=== PATIENT | female | born 1995 | race African-American/Black ===

== ENCOUNTER 2019-04-28 11:20 | Inpatient (IN) | payer MEDICAID ==
[~2019-04-28] VITALS: Ht 170.2 cm; Wt 90.7 kg
[2019-04-28] MEDS: LACTATED RINGER'S 1,000 ML IV SCH ×2 (12:30→13:10)
[2019-04-28] MEDS ORDERED: LACT. RINGERS/OXYTOCIN 20UNITS 1,000 ML IV SCH (12:42)
[2019-04-28] MEDS ORDERED: LIDOCAINE 1% (LOCAL ANESTH.) PF 5ml SDV IJ ONE (12:45)
[2019-04-28] MEDS ORDERED: NALBUPHINE HCL 10 MG/1ml INJECTION IV PRN (12:45)
[2019-04-28] MEDS ORDERED: LIDOCAINE 2%HCL (LOCAL ANESTH.) INJ 20ML MDV ID ONE (12:45)
[2019-04-28] MEDS ORDERED: WITCH HAZEL-GLYCERIN PAD TOP PRN (12:45)
[2019-04-28] MEDS ORDERED: PHISODERM TOP SOLN 240ML BTL TOP PRN (12:45)
[2019-04-28] MEDS ORDERED: DERMOPLAST 60ML BOTTLE TOP PRN (12:45)
[2019-04-28] MEDS ORDERED: PENICILLIN G POT 5MIL/D5 50ML 50 ML IV ONE (12:45)
[2019-04-28] MEDS: PENICILLIN G POTASSIUM 2,500,000 UNITS in D5W 5% 50 ML IV SCH ×2 (13:14→17:11)
[2019-04-28 13:21] LABS: Urine WBC None Seen /hpf (0 - 5)
[2019-04-28 13:28] LABS: Basophils # (auto) 0 uL; Basophils % (auto) 0.2 % (0.0-2.0); Eosinophils # (auto) 0 uL; Eosinophils % (auto) 0.4 % (0.0-7.0); Hematocrit 36.3 % (36.0-46.0); Hemoglobin 11.9 g/dL (12.2-16.2); Lymphocytes # (auto) 1.7 uL; Lymphocytes % (auto) 14.4 % (10.0-50.0); Mean Corpuscular Hgb Conc. 32.9 g/dL (32.0-36.0); Mean Corpuscular Volume 91.2 fL (80.0-100.0); Monocytes # (auto) 0.5 uL; Monocytes % (auto) 4.7 % (0.0-12.0); Neutrophils # (auto) 9.5 uL; Neutrophils % (auto) 80.3 % (37.0-80.0); Nucleated Red Blood Cells % 0.1 %; Platelet Count (auto) 309 10^3/uL (140-450); Red Blood Cells 3.98 10^6/uL (4.0-5.20); Red Cell Distribution Width 14.2 % (11.8-14.3); White Blood Cell 11.8 10^3/uL (4.4-10.8)
[2019-04-28 13:35] LABS: Urine Bacteria FEW /hpf (None Seen); Urine Blood Negative /uL (Negative); Urine Specific Gravity 1.012 (1.001-1.035)
[2019-04-28 13:44] LABS: INR < 0.93 (0.9-1.15); Partial Thromboplastin Time 26.2 sec (23.64-32.05)
[2019-04-28 13:54] LABS: Albumin 2.8 g/dL (3.4-5.0); Calcium 8.8 mg/dL (8.5-10.1); Potassium 3.8 mmol/L (3.5-5.1); Uric Acid 5.5 mg/dL (2.6-6.0)
[2019-04-28 13:54] LABS: Alcohol, Urine < 3.0 mg/dL (0-5); Amphetamine Screen, Urine NEGATIVE (NEGATIVE); Barbiturate Scree,Urine NEGATIVE (NEGATIVE); Benzodiazephine Screen, Urine NEGATIVE (NEGATIVE); Cannabinoid Screen, Urine NEGATIVE (NEGATIVE); Cocaine Screen, Urine NEGATIVE (NEGATIVE); Opiate Scree,Urine NEGATIVE (NEGATIVE); Phencyclidine Screen, Urine NEGATIVE (NEGATIVE)
[2019-04-28 13:57] LABS: BUN/Creatinine Ratio 9.8; Bilirubin, Total 0.4 mg/dL (0.2-1.0); Total Protein 7.6 g/dL (6.4-8.2)
[2019-04-28] MEDS ORDERED: PREN-129 OR (17:53)
[2019-04-28] MEDS ORDERED: IBUPROFEN 600 MG TAB PO PRN (19:00)
--- NOTE | 2019-04-28 19:00 | NUR ---
Teaching: Reviewed information in [employer] booklet with patient. Discussed benefits of and risks associated with not . Discussed different positions, proper latch, feeding cues, and baby-led . Provided information of medication side effects related to . All questions and concerns addressed at this time. Patient verbalized understanding of information.
--- NOTE | 2019-04-28 21:06 | NUR ---
Ambulation: Patient OOB with standby assistance by RN. Patient ambulated to bathroom with steady gait. Patient unable to void at this time. [facility] teaching provided with returned demonstration by patient. Clean gown provided and bed linen changed. Patient ambulated back to bed with steady gait and no distress noted.
--- NOTE | 2019-04-28 21:50 | NUR ---
Report given to Talia Tony RN
[2019-04-28 23:30] VITALS: BP 104/72
[2019-04-29 03:30] VITALS: BP 124/57
[2019-04-29 06:33] VITALS: BP 126/72
--- NOTE | 2019-04-29 06:35 | NUR ---
PT NOTIFIED THAT SHE IS RUBELLA NON-IMMUNE. PT GIVEN MMR VACCINATION EDUCATION FORM TO READ. PT DECLINES MMR VACCINE. WILL CONTINUE TO MONITOR.
[2019-04-29 11:00] VITALS: BP 125/64
[2019-04-29 12:17] LABS: RPR Non Reactive (Non Reactive)
[2019-04-29 15:00] VITALS: BP 128/70
--- NOTE | 2019-04-29 15:08 | NUR ---
IV removal IV DC'd with clean sterile technique, catheter fully intact. Pressure dressing applied to site. Patient tolerated well.
[2019-04-29] MEDS ORDERED: TETANUS-DIPTH-ACEL PERTUSSIS 0.5ML SYRG IM ONE (16:30)
[2019-04-29 19:00] VITALS: BP 137/68
--- NOTE | 2019-04-29 20:30 | NUR ---
Post discharge instructions given, pt verbalizes understanding. and required signature obtained.
--- NOTE | 2019-04-29 21:12 | NUR ---
ID bands checked and verfied and removed per protocol and required signature obtained. 2114 Pt discharged home with significant other in stable condition. Pt able to ambulate to private vehicle without difficulty
== END 2019-04-29 21:15 | disposition home or self-care (01) | DRG 560 ==
LOC: LDRP 11:20 → OBSVTOIN 13:15 → LDRP 18:18
PROVIDERS: ADMIT Specialist; ATTEND Specialist
PROC: 10E0XZZ Delivery of Products of Conception, External Approach (ICD-10-PCS; principal; 2019-04-28)
PROC: 0HQ9XZZ Repair Perineum Skin, External Approach (ICD-10-PCS; 2019-04-28)
PROC: 3E0234Z Introduction of Serum, Toxoid and Vaccine into Muscle, Percutaneous Approach (ICD-10-PCS; 2019-04-29)
DX: O69.81X0 Labor and delivery complicated by cord around neck, without compression, not applicable or unspecified (principal); O70.0 First degree perineal laceration during delivery; O99.824 Streptococcus B carrier state complicating childbirth; Z37.0 Single live birth; Z3A.38 38 weeks gestation of pregnancy; Z23 Encounter for immunization
CPT/HCPCS: 36415; 59409; 80053; 80307; 81001; 81002; 84112; 84550; 85025; 85610; 85730; 86592; 86850; 86900; 86901; 90715; 96361; 96365; 96372; G0378; J2540; J2590; J7060